=== PATIENT | female | born 1945 | race Hispanic/Latino ===

== ENCOUNTER 2022-09-19 09:05 | Outpatient (RCR) | payer MEDICARE ==
[~2022-09-19 09:05] MED LIST: CIPRO500 MG PO; FLAGYL250 MG PO; LEVOTHYROXINE50 MCG PO; LOSARTAN POTAS100 MG PO; METFORMIN HCL500 MG PO; METOPROLOL TART50 MG PO; MIRAPEX1 MG PO; PANTOPRAZOLE SO40 MG PO; ULTRAM50 MG PO; ZOCOR20 MG PO; ZOFRAN ODT4 MG SL
== END 2022-10-15 ==
LOC: OT 09:05
PROVIDERS: ATTEND Specialist
DX: M19.011 Primary osteoarthritis, right shoulder (principal)